=== PATIENT | female | born 1980 | race Caucasian/White ===

== ENCOUNTER 2018-04-29 18:19 | Emergency (ER) | payer MEDICAID, OTHER ==
[~2018-04-29] VITALS: Ht 172.7 cm; Wt 110.0 kg
[2018-04-29] MEDS: bacitracin 15gm ointment TP ONE (18:58)
[2018-04-29] MEDS: TETanus/Pertussis (Acell)/Diphther VAC/PF (Tdap-Adult) 0.5ml syringe IM ONE (18:59)
[2018-04-29 19:05] LABS: BASOPHILS % (AUTO) 0.2 % (0-1); EOSINOPHILS % (AUTO) 0 % (0-6); HEMATOCRIT 44.1 % (35.0-45.0); HEMOGLOBIN 14.9 g/dl (12.0-16.0); LYMPHOCYTES # (AUTO) 0.9 X10'3 (1.1-4.8); LYMPHOCYTES % (AUTO) 6.5 % (21-51); MEAN CORPUSCULAR HEMOGLOBIN 29.4 PG (27.0-31.0); MEAN CORPUSCULAR HGB CONC 33.8 % (33.0-36.5); MEAN CORPUSCULAR VOLUME 87.1 FL (78-98); MEAN PLATELET VOLUME 7.8 FL (7.4-10.4); MONOCYTES # (AUTO) 0.2 X10'3 (0-0.9); MONOCYTES % (AUTO) 1.3 % (2-12); NEUTROPHILS # (AUTO) 12.2 X10'3 (1.8-7.7); PLATELET COUNT 333 X10'3 (140-440); RED BLOOD COUNT 5.07 X10'6 (4.20-5.60); RED CELL DISTRIBUTION WIDTH 12.8 % (11.5-14.5); WHITE BLOOD COUNT 13.3 X10'3 (4.5-11.0)
[2018-04-29 19:18] LABS: ALANINE AMINOTRANSFERASE 16 U/L (12-78); ALBUMIN 3.7 G/DL (3.4-5.0); ALKALINE PHOSPHATASE 75 IU/L (46-116); ANION GAP 10 (8-16); ASPARTATE AMINO TRANSFERASE 12 U/L (10-37); BILIRUBIN,TOTAL 0.4 MG/DL (0.1-1.0); BLOOD UREA NITROGEN 10 MG/DL (7-18); BUN/CREATININE RATIO 13.5 (6.6-38.0); CALCIUM 9.1 MG/DL (8.5-10.1); CHLORIDE 104 MMOL/L (99-107); CREATININE 0.74 MG/DL (0.40-0.90); GLUCOSE 123 MG/DL (70-104); POTASSIUM 4.4 MMOL/L (3.5-5.1); SODIUM 139 MMOL/L (135-145); TOTAL CARBON DIOXIDE 24.9 MMOL/L (24-32); TOTAL PROTEIN 7.5 G/DL (6.4-8.2); eGFR 88 ML/MIN
[2018-04-29 19:31] LABS: ACETAMINOPHEN < 2.0 UG/ML (10-30)
[2018-04-29 19:32] LABS: ETHANOL < 0.010 GM/DL (0.0-0.010)
[2018-04-29 20:12] LABS: URINE HCG NEGATIVE (NEG)
[2018-04-29 20:20] LABS: CLARITY,URINE SLIGHTLY CLOUDY (Clear); COLOR,URINE YELLOW (Yellow); GLUCOSE, URINE NEGATIVE (Neg); KETONES,URINE NEGATIVE (Neg); LEUKOCYTE ESTERASE ,URINE TRACE (Neg); NITRITES, URINE NEGATIVE (Neg); OCCULT BLOOD,URINE SMALL (Neg); PROTEIN,URINE TRACE mg/dl (Neg); UROBILINOGEN,URINE 0.2 E.U/dL (0.2-1.0)
[2018-04-29 20:22] LABS: UA COLLECTION TYPE CLN CATCH MIDSTREAM; URINE AMPHETAMINE SCREEN NEGATIVE (Neg); URINE BARBITUATE SCREEN NEGATIVE (Neg); URINE BENZODIAZEPINES SCREEN POSITIVE (Neg); URINE CANNABINOID SCREEN NEGATIVE (Neg); URINE COCAINE SCREEN NEGATIVE (Neg); URINE METHADONE SCREEN NEGATIVE (Neg); URINE OPIATE SCREEN NEGATIVE (Neg); URINE PHENCYCLIDINE SCREEN NEGATIVE (Neg)
[2018-04-29 20:32] LABS: MUCUS STRANDS MANY /LPF (Neg); SQUAMOUS EPITHELIAL CELL,UR MANY /LPF (FEW)
[2018-04-29 20:33] LABS: RENAL CELLS, URINE FEW /HPF; WBC,URINE 0-4 /HPF (0-4)
[2018-04-29 20:34] LABS: BACTERIA,URINE FEW /HPF (Neg); RBC,URINE NONE SEEN /HPF (0-2)
[2018-04-30] MEDS ORDERED: SERT25TA PO (13:31)
[2018-04-30 17:56] VITALS: BP 102/66
== END 2018-04-30 21:54 ==
LOC: ER 18:20
DX: S61.511A Laceration without foreign body of right wrist, initial encounter (principal); T44.7X2A Poisoning by beta-adrenoreceptor antagonists, intentional self-harm, initial encounter; T43.222A Poisoning by selective serotonin reuptake inhibitors, intentional self-harm, initial encounter; F32.9 Major depressive disorder, single episode, unspecified; Z88.0 Allergy status to penicillin; Z79.899 Other long term (current) drug therapy; X78.9XXA Intentional self-harm by unspecified sharp object, initial encounter; Y93.89 Activity, other specified; Y92.89 Other specified places as the place of occurrence of the external cause; Y99.8 Other external cause status
CPT/HCPCS: 12002; 36415; 80053; 80305; 80320; 80329; 81001; 81025; 84443; 85025; 90471; 90715; 93005; 99285